=== PATIENT | male | born 1970 | race American Indian/Alaskan Native ===

== ENCOUNTER 2017-09-24 08:57 | Emergency (ER) | payer MEDICAID ==
[2017-09-24 09:14] VITALS: BP 118/66
--- NOTE | 2017-09-24 12:15 | Emergency Department Report ---
Upper Extremity - HPI Chief Complaint: Shoulder Injury Stated Complaint: I HAVE A TORN ROTATOR CUFF AND A BUMP ON MY ABDOME Time Seen by Provider: 09/24/17 11:21 Upper Extremity: Left Shoulder (left rotator cuff injury with pain) Occurred When: >5 Days (ongoing) Mechanism: Other (injured shoulder while lifting a refrigerator) Severity: severe (10/10) Symptoms: Yes Pain with Movement (shoulder), Yes Limited Range of Movement ( left shoulder), Yes Weakness, No Deformity, No Numbness, No Swelling, No Bruising/Ecchymosis, No Laceration or Abrasion Other History: Patient here reported that he just moved from [place] and he is a history of torn left rotator cuff [facility] He said he just moved here and started working again and he is having a lot of pain that started 3 days ago. Denies any radiation of pain. Patient has MRI with him that shows extensive rotator cuff injury. Pain is 10 out of 10 achy and throbbing in. Worse with movement better with rest. He said he has not taken any medication. Patient said he was taken Percocet in the past but he doesn't have any and he hasn't taken any in 3 months because he hasn't worked. Patient' s that he has appointment with the OR clinic in [place] and [place] and he can' t wait that long. ED Review of Systems ROS: Stated complaint: I HAVE A TORN ROTATOR CUFF AND A BUMP ON MY ABDOME Other details as noted in HPI Comment: All other systems reviewed and negative Constitutional: no symptoms reported Respiratory: no symptoms reported Cardiovascular: denies: chest pain, palpitations, dyspnea on exertion, edema, syncope, paroxysmal nocturnal dyspnea Gastrointestinal: denies: abdominal pain, nausea, vomiting Musculoskeletal: arthralgia. denies: back pain, joint swelling, myalgia Skin: denies: rash Neurological: denies: headache, weakness, numbness, paresthesias ED Past Medical Hx - Past Medical History Previous Medical History?: Yes Additional medical history: Left torn rotator cuff - Surgical History Past Surgical History?: No - Family History Family history: hypertension - Social History Smoking Status: Never Smoker Substance Use Type: Alcohol, Marijuana, Prescribed - Medications Home Medications: Home Medications Medication Instructions Recorded Confirmed Last Taken Type Acetaminophen/Codeine [Tylenol 1 tab PO Q6H PRN #6 tab 09/24/17 Unknown Rx /Codeine # 3 tab] Ibuprofen [Motrin] 600 mg PO Q8H PRN 5 Days #15 tablet 09/24/17 Unknown Rx Upper Extremity Exam - Exam General: Vital signs noted. No distress. Alert and acting appropriately. Patient care in no acute distress. Well-nourished well-developed. Nontoxic in appearance Head and Torso: No HEENT Abnormality, No Neck Tenderness, No Chest/Lungs Abnormality, No Abdominal Tenderness, No Back Tenderness Shoulder Exam: Yes Shoulder Tenderness (tenderness to palpate at Glenhumoral joint. No bony deformity noted.), Yes Normal Range of Motion in Shoulder ( patient with full range of motion to his shoulders but he reports pain with movement to left shoulder.), No Clavicle Tenderness, No Shoulder Deformity, No AC Joint Tenderness Arm Exam: No Arm/Humerus Tenderness, No Arm Deformity Elbow: Yes Normal Range of Motion in Elbow, No Elbow Tenderness, No Elbow Deformity Forearm: No Forearm Tenderness, No Forearm Deformity, No Pain with Pronation, No Pain with Supination Wrist: Yes Normal ROM in Wrist, No Wrist Tenderness, No Wrist Deformity, No Snuffbox Tenderness, No Pain with Axial Thumb Compression Hand: Yes Normal ROM in Digit(s), No Hand Tenderness, No Hand Deformity, No Digit Tenderness, No Digit(s) Deformity, No Tendon Dysfunction CMS Exam: Yes Normal Distal Pulses, Yes Normal Capillary Refill, Yes Normal Distal Sensation, No Broken Skin ED Course Vital Signs 09/24/17 09:10 Temperature 97.7 F Pulse Rate 58 L Respiratory 16 Rate Blood Pressure 118/66 O2 Sat by Pulse 99 Oximetry - Reevaluation(s) Reevaluation #1: 09/24/17 12:42 I ordered Toradol and Decadron for patient and she refused. ED Medical Decision Making - Medical Decision Making ED course: Patient here reports that he has rotator cuff tear and he just moved from [place] and just started work in a he has flare up of pain. Pain is centered to 10. He has MRI that shows very extensive rotator cuff tears, osteoarthritis. Patient goes to the OR but he says he has an appointment [facility]. Patient refused Decadron and Toradol in the emergency room. He said he'll go to the OR emergency room tomorrow. I told them that we'll be good because they have always medical records and he needs to see orthopedic doctor that can repair his rotator cuff injury. I discussed; cannot give him any Percocet because this pain is chronic he will need to go to pain clinic which she could be referred to a pain clinic through OR. Patient discharged home with prescription for Tylenol 3 4 tablets. Critical care attestation.: If time is entered above; I have spent that time in minutes in the direct care of this critically ill patient, excluding procedure time. ED Disposition Clinical Impression: Rotator cuff injury Qualifiers: Encounter type: initial encounter Laterality: left Qualified Code(s): S46.002A - Unspecified injury of muscle(s) and tendon(s) of the rotator cuff of left shoulder, initial encounter Shoulder pain, left Qualifiers: Chronicity: unspecified Qualified Code(s): M25.512 - Pain in left shoulder Disposition: DC-01 TO HOME OR SELFCARE Is pt being admited?: No Does the pt Need Aspirin: No Condition: Stable Instructions: Rotator Cuff Injury (ED), Osteoarthritis (ED), Arthralgia (ED) Additional Instructions: [facility] you [facility] doctor to repair your extensive rotator cuff tears and tendinitis. Take Tylenol 3 as prescribed [address] not drive or operate heavy machinery while taking this medication See referral to orthopedic doctor. Prescriptions: Acetaminophen/Codeine [Tylenol /Codeine # 3 tab] 1 tab PO Q6H PRN #6 tab PRN Reason: Pain, Moderate (4-6) Ibuprofen [Motrin] 600 mg PO Q8H PRN 5 Days #15 tablet PRN Reason: Pain Referrals: GREGORIO LUONG MD [Primary Care Provider] - 09/26/17 OR Hospital [Outside] - 3-5 Days GERI VASQUEZ MD [Staff Physician] - 09/26/17 Forms: Work/School Release Form(ED)
[2017-09-24] MEDS ORDERED: TORADOL IM ONE (12:16)
[2017-09-24] MEDS ORDERED: DECADRON IM ONE (12:16)
== END 2017-09-24 12:50 | disposition home or self-care (01) ==
LOC: ED 08:57
DX: S46.002A Unspecified injury of muscle(s) and tendon(s) of the rotator cuff of left shoulder, initial encounter (principal); X58.XXXA Exposure to other specified factors, initial encounter; Y93.89 Activity, other specified; Y92.89 Other specified places as the place of occurrence of the external cause; Y99.8 Other external cause status
CPT/HCPCS: 99282; J1100; J1885

== ENCOUNTER 2017-11-24 09:39 | Emergency (ER) | payer SELFPAY ==
[2017-11-24 10:57] VITALS: BP 117/59
--- NOTE | 2017-11-24 11:09 | Emergency Department Report ---
Chief Complaint: Urogenital-Male Stated Complaint: STD Time Seen by Provider: 11/24/17 10:59 - HPI History of Present Illness: 47-year-old male states that his girlfriend of 4 months tested positive for chlamydia and syphilis and he is requesting treatment. He denies any dysuria, penile lesions, discharge, or testicular pain. He shows me a prescription of Flagyl as her treatment medication - ROS Review of Systems: no fever, no symptoms - Exam Vital Signs: Vital Signs 11/24/17 10:54 Temperature 98.4 F Pulse Rate 57 L Respiratory 20 Rate Blood Pressure 117/59 O2 Sat by Pulse 100 Oximetry Physical Exam: lungs cta cv rrr MSE screening note: Focused history and physical exam performed. Due to findings the following was ordered: this is not a medical emergency after mse screen Pt elected to not pay copay and therefore not be further evaluated. [facility] was [facility] Disposition for MSE Condition: Stable
== END 2017-11-24 11:39 ==
LOC: ED 09:39
DX: A64 Unspecified sexually transmitted disease (principal); Z53.21 Procedure and treatment not carried out due to patient leaving prior to being seen by health care provider